=== PATIENT | female | born 1995 | race Caucasian/White ===

== ENCOUNTER → 2020-04-25 | Outpatient (CLI) | payer OTHER ==
[~2020-04-25] MED LIST: AUGMENTIN 875875 MG PO; BACTRIM DS 8001 TA1 PO; BIRTH CONTROL1 EAC1 PO; CORDROL20 MG PO; FLEXERIL10 MG PO; LOMOTIL 0.025 M1 TA1 PO; MOTRIN800 MG PO; NAPROSYN375 MG PO; NORCO 325 MG-51 TAB PO; PEPCID20 MG PO; ZOFRAN ODT4 MG SL; ZYRTEC10 MG PO
[2020-04-25 08:44] LABS: BASO % 0.4 % (0.0-1.0); EOS # 0.1 10*3/uL (0.0-0.4); EOS % 2.2 % (1.0-4.0); HEMATOCRIT 41.2 % (37.0-47.0); LYMPH # 1.6 10*3/uL (1.3-4.4); LYMPH % 32.5 % (27.0-41.0); MEAN CELL VOLUME 88.6 fl (81.0-99.0); MEAN CORPUSCULAR HGB 29.2 pg (27.0-31.0); MEAN PLATELET VOLUME 9.6 fl (9.6-12.3); MONO # 0.3 10*3/uL (0.1-1.0); MONO % 5.8 % (3.0-9.0); NEUT % 59.1 % (47.0-73.0); PLATELET COUNT AUTOMATED 275 10*3/uL (130-400); RED BLOOD COUNT 4.65 10*6/uL (4.10-5.10)
[2020-04-25 08:46] LABS: ALBUMIN 3.7 gm/dl (3.1-4.5); ALKALINE PHOSPHATASE 70 U/L (45-117); B-hCG (QUALITATIVE) NEGATIVE (NEGATIVE); BUN 7 mg/dl (7-24); CHLORIDE 108 mmol/L (98-107); CHOLESTEROL 149 mg/dL (<200); CREATININE 0.65 mg/dL (0.55-1.02); HDL CHOLESTEROL 66 mg/dl (40-60); LDL CHOLESTEROL 74 mg/dL (9-159); SGOT/AST 19 IU/L (3-35); SGPT/ALT 23 U/L (12-78); SODIUM 140 mmol/L (136-145); TOTAL PROTEIN 7.2 gm/dL (6.4-8.2); TRIGLYCERIDES 43 mg/dl (<150); VLDL CHOLESTEROL 9 mg/dL (6-40)
== END | disposition home or self-care (01) ==
LOC: LAB 08:14
PROVIDERS: ATTEND Specialist
DX: L70.0 Acne vulgaris (principal); Z79.891 Long term (current) use of opiate analgesic; Z79.899 Other long term (current) drug therapy

== ENCOUNTER → 2020-05-25 | Outpatient (CLI) | payer OTHER | END | disposition home or self-care (01) | LOC: LAB 11:59 | PROVIDERS: ATTEND Specialist | DX: L20.0 Besnier's prurigo (principal); Z79.899 Other long term (current) drug therapy ==

== ENCOUNTER → 2020-06-26 | Outpatient (CLI) | payer OTHER ==
[2020-06-26 08:42] LABS: ALBUMIN 3.9 gm/dl (3.1-4.5); ALKALINE PHOSPHATASE 67 U/L (45-117); B-hCG (QUALITATIVE) NEGATIVE (NEGATIVE); BILIRUBIN, DIRECT 0.1 mg/dL (0.0-0.2); CHOLESTEROL 171 mg/dL (<200); LDL CHOLESTEROL 95 mg/dL (9-159); SGOT/AST 13 IU/L (3-35); SGPT/ALT 37 U/L (12-78); TOTAL PROTEIN 7.3 gm/dL (6.4-8.2); TRIGLYCERIDES 86 mg/dl (<150)
== END | disposition home or self-care (01) ==
LOC: LAB 07:35
PROVIDERS: ATTEND Specialist
DX: L70.0 Acne vulgaris (principal); Z79.891 Long term (current) use of opiate analgesic

== ENCOUNTER → 2020-07-24 | Outpatient (CLI) | payer OTHER ==
[2020-07-24 08:49] LABS: ALBUMIN 3.9 gm/dl (3.1-4.5); ALKALINE PHOSPHATASE 67 U/L (45-117); B-hCG (QUALITATIVE) NEGATIVE (NEGATIVE); BILIRUBIN, DIRECT 0.2 mg/dL (0.0-0.2); CHOLESTEROL 165 mg/dL (<200); LDL CHOLESTEROL 92 mg/dL (9-159); SGOT/AST 15 IU/L (3-35); SGPT/ALT 23 U/L (12-78); TOTAL PROTEIN 7.4 gm/dL (6.4-8.2); TRIGLYCERIDES 59 mg/dl (<150)
== END | disposition home or self-care (01) ==
LOC: LAB 07:36
PROVIDERS: ATTEND Specialist
DX: L70.0 Acne vulgaris (principal); Z79.891 Long term (current) use of opiate analgesic

== ENCOUNTER → 2020-08-21 | Outpatient (CLI) | payer OTHER ==
[2020-08-21 09:22] LABS: ALBUMIN 3.9 gm/dl (3.1-4.5); BILIRUBIN, DIRECT 0.1 mg/dL (0.0-0.2); CHOLESTEROL 137 mg/dL (<200); SGOT/AST 11 IU/L (3-35); SGPT/ALT 15 U/L (12-78); TRIGLYCERIDES 81 mg/dl (<150)
[2020-08-21 09:26] LABS: ALKALINE PHOSPHATASE 62 U/L (45-117); B-hCG (QUALITATIVE) NEGATIVE (NEGATIVE); LDL CHOLESTEROL 71 mg/dL (9-159)
== END | disposition home or self-care (01) ==
LOC: LAB 08:04
PROVIDERS: ATTEND Specialist
DX: L70.0 Acne vulgaris (principal); Z79.891 Long term (current) use of opiate analgesic

== ENCOUNTER → 2020-09-17 | Outpatient (CLI) | payer OTHER | END | disposition home or self-care (01) | LOC: LAB 16:20 | PROVIDERS: ATTEND Specialist | DX: R53.83 Other fatigue (principal) ==

== ENCOUNTER → 2020-09-18 | Outpatient (CLI) | payer OTHER ==
[2020-09-18 08:17] LABS: ALBUMIN 3.9 gm/dl (3.1-4.5); ALKALINE PHOSPHATASE 77 U/L (45-117); B-hCG (QUALITATIVE) NEGATIVE (NEGATIVE); CHOLESTEROL 127 mg/dL (<200); LDL CHOLESTEROL 60 mg/dL (9-159); SGOT/AST 8 IU/L (3-35); SGPT/ALT 17 U/L (12-78); TOTAL PROTEIN 7.3 gm/dL (6.4-8.2); TRIGLYCERIDES 115 mg/dl (<150)
== END | disposition home or self-care (01) ==
LOC: LAB 07:42
PROVIDERS: ATTEND Specialist
DX: L70.0 Acne vulgaris (principal); Z79.891 Long term (current) use of opiate analgesic

== ENCOUNTER → 2020-09-19 | Outpatient (CLI) | payer OTHER ==
[2020-09-19 09:09] LABS: BASO % 0.3 % (0.0-1.0); EOS # 0.1 10*3/uL (0.0-0.4); EOS % 1.1 % (1.0-4.0); HEMATOCRIT 42.8 % (37.0-47.0); LYMPH % 32.8 % (27.0-41.0); MEAN CELL VOLUME 89.9 fl (81.0-99.0); MEAN CORPUSCULAR HGB CONC 33.4 g/dl (33.0-37.0); MEAN PLATELET VOLUME 9.9 fl (9.6-12.3); MONO # 0.4 10*3/uL (0.1-1.0); MONO % 6.4 % (3.0-9.0); NEUT # 3.6 10*3/uL (2.3-7.9); NEUT % 59.2 % (47.0-73.0); PLATELET COUNT AUTOMATED 288 10*3/uL (130-400); RED BLOOD COUNT 4.76 10*6/uL (4.10-5.10); RED CELL DISTRI WIDTH 11.9 % (0-14.5); WHITE BLOOD COUNT 6.1 10*3/uL (4.8-10.8)
[2020-09-19 09:28] LABS: ALBUMIN 4.2 gm/dl (3.1-4.5); ALKALINE PHOSPHATASE 70 U/L (45-117); BUN 10 mg/dl (7-24); CHLORIDE 105 mmol/L (98-107); POTASSIUM 3.7 mmol/L (3.5-5.1); SGOT/AST 10 IU/L (3-35); SGPT/ALT 16 U/L (12-78); SODIUM 138 mmol/L (136-145); TOTAL PROTEIN 7.7 gm/dL (6.4-8.2)
== END | disposition home or self-care (01) ==
LOC: LAB 08:07
PROVIDERS: ATTEND Specialist
DX: L70.0 Acne vulgaris (principal); Z79.891 Long term (current) use of opiate analgesic

== ENCOUNTER → 2020-10-10 | Outpatient (CLI) | payer OTHER | END | disposition home or self-care (01) | LOC: COVID19 00:11 → LAB 00:11 → COVID19 09:00 | PROVIDERS: ATTEND Internal Medicine | DX: U07.1 COVID-19 (principal) ==

== ENCOUNTER → 2020-10-16 | Outpatient (CLI) | payer OTHER ==
[2020-10-16 09:58] LABS: ALKALINE PHOSPHATASE 77 U/L (45-117); B-hCG (QUALITATIVE) NEGATIVE (NEGATIVE); CHOLESTEROL 164 mg/dL (<200); LDL CHOLESTEROL 100 mg/dL (9-159); SGOT/AST 10 IU/L (3-35); SGPT/ALT 21 U/L (12-78); TOTAL PROTEIN 7.8 gm/dL (6.4-8.2); TRIGLYCERIDES 69 mg/dl (<150)
== END | disposition home or self-care (01) ==
LOC: LAB 08:51
PROVIDERS: ATTEND Specialist
DX: L70.0 Acne vulgaris (principal); Z79.899 Other long term (current) drug therapy

== ENCOUNTER → 2020-11-19 | Outpatient (CLI) | payer OTHER ==
[2020-11-19 11:44] LABS: CHOLESTEROL 174 mg/dL (<200); SGOT/AST 14 IU/L (3-35); SGPT/ALT 17 U/L (12-78)
[2020-11-19 11:49] LABS: ALKALINE PHOSPHATASE 70 U/L (45-117); B-hCG (QUALITATIVE) NEGATIVE (NEGATIVE); LDL CHOLESTEROL 97 mg/dL (9-159); TOTAL PROTEIN 7.7 gm/dL (6.4-8.2); TRIGLYCERIDES 58 mg/dl (<150)
== END | disposition home or self-care (01) ==
LOC: LAB 10:45
PROVIDERS: ATTEND Specialist
DX: L70.0 Acne vulgaris (principal); Z79.899 Other long term (current) drug therapy